=== PATIENT | male | born 1950 | race Caucasian/White ===

== ENCOUNTER → 2018-03-20 | Outpatient (CLI) | payer MEDICARE ==
[~2018-03-20] MED LIST: AMLO1CAP4 PO
== END | disposition home or self-care (01) ==
LOC: CFH 08:49
PROVIDERS: ATTEND Internal Medicine Cardiovascular Disease
DX: I10 Essential (primary) hypertension (principal); R00.2 Palpitations
CPT/HCPCS: 93306

== ENCOUNTER → 2018-07-04 | Outpatient (CLI) | payer MEDICARE ==
[~2018-07-04] MED LIST changes: +METO25TA35 PO; +MULT-717 PO; +TADA5TAB2 PO
[2018-07-04 10:29] LABS: ALANINE AMINOTRANSFERASE 28 U/L (12-78); ALBUMIN 3.9 g/dL (3.4-5.0); CALCIUM 8.6 mg/dL (8.5-10.1); CREATININE 1.08 mg/dL (0.7-1.3)
[2018-07-04 10:31] LABS: ALKALINE PHOSPHATASE 47 U/L (45-117); BILIRUBIN,TOTAL 0.7 mg/dL (0.2-1.0); TOTAL PROTEIN 7.3 g/dL (6.4-8.2)
[2018-07-04 10:42] LABS: CHLORIDE 108 mmol/L (98-107)
[2018-07-04 10:43] LABS: ANION GAP 9 mmol/L (5-15)
== END | disposition home or self-care (01) ==
LOC: STAR 09:04
PROVIDERS: ATTEND Surgery
DX: Z01.818 Encounter for other preprocedural examination (principal); K42.9 Umbilical hernia without obstruction or gangrene
CPT/HCPCS: 36415; 80053; 93005

== ENCOUNTER 2018-07-21 07:30 | Day surgery (SDC) | payer MEDICARE ==
[2018-07-04 10:13] VITALS: BP 146/85
[~2018-07-21] VITALS: Ht 188 cm; Wt 92.7 kg
[~2018-07-21 07:30] MED LIST changes: +BUPIVACAINE/PF 0.5% ONE; +EPINEPHRINE 1 MG/ML, 1ML ONE
[2018-07-21] MEDS ORDERED: LACTATED RINGERS 1,000 ML IV SCH (07:59)
[2018-07-21] MEDS ORDERED: ONDANSETRON ODT 8 MG PO ONE (08:00)
[2018-07-21] MEDS ORDERED: GABAPENTIN 300 MG CAPSULE PO ONE (08:00)
[2018-07-21] MEDS ORDERED: ACETAMINOPHEN 500 MG TABLET PO ONE (08:00)
[2018-07-21] MEDS ORDERED: FENTANYL PF 100 MCG/2ML ONE ×2 (09:05→10:30)
[2018-07-21] MEDS ORDERED: MIDAZOLAM 1 MG/ML, 2ML ONE (09:05)
[2018-07-21] MEDS ORDERED: CEFAZOLIN 1,000 MG ONE (09:06)
[2018-07-21] MEDS ORDERED: DEXAMETHASONE 4 MG/ML, 1ML ONE (09:06)
[2018-07-21] MEDS ORDERED: PROPOFOL 10 MG/ML, 20ML ONE (09:06)
[2018-07-21] MEDS ORDERED: EPINEPHRINE 1 MG/ML, 1ML ONE (09:15)
[2018-07-21] MEDS ORDERED: BUPIVACAINE/PF 0.5% ONE (09:15)
[2018-07-21] MEDS ORDERED: HYDROmorphone 1 MG/ML, 1ML IV PRN (10:00)
[2018-07-21] MEDS ORDERED: LABETALOL 5MG/ML, 20ML IV PRN (10:00)
[2018-07-21] MEDS ORDERED: PROMETHAZINE 25 MG SUPP PR PRN (10:00)
[2018-07-21] MEDS ORDERED: OXYcodone 5 MG/5 ML ORAL.SOL UDC PO PRN (10:00)
[2018-07-21] MEDS ORDERED: ONDANSETRON 2MG/ML, 2ML IV PRN (10:00)
[2018-07-21] MEDS ORDERED: MEPERIDINE/PF 25MG/0.5ML IVPush PRN (10:00)
[2018-07-21] MEDS ORDERED: ALBUTEROL/IPRATROPIUM 2.5MG/0.5MG, 3 ML NPPB PRN (10:00)
[2018-07-21] MEDS ORDERED: SCOPOLAMINE PATCH, 1.5MG PATCH.TD72 TD PRN (10:00)
[2018-07-21] MEDS ORDERED: FENTANYL PF 100 MCG/2ML IV PRN (10:00)
[2018-07-21] MEDS ORDERED: MIDAZOLAM 1 MG/ML, 2ML IV PRN (10:00)
[2018-07-21] MEDS ORDERED: OXYcodone 5 MG/5 ML ORAL.SOL UDC ONE (10:15)
[2018-07-21] MEDS ORDERED: KETOROLAC 30 MG/1 ML ONE (16:04)
== END 2018-07-21 12:15 | disposition home or self-care (01) ==
LOC: OUT 07:30
PROVIDERS: ATTEND Surgery
DX: K42.0 Umbilical hernia with obstruction, without gangrene (principal); I10 Essential (primary) hypertension; G47.33 Obstructive sleep apnea (adult) (pediatric); Z98.890 Other specified postprocedural states; Z87.891 Personal history of nicotine dependence; Z72.89 Other problems related to lifestyle
CPT/HCPCS: 49587; J0171; J0690; J1100; J1885; J2250; J2704; J3010; J3490; J7120; Q0162; C1781

== ENCOUNTER 2019-11-08 11:58 | Day surgery (SDC) | payer MEDICARE ==
[~2019-11-08] VITALS: Ht 188 cm; Wt 90.9 kg
[~2019-11-08 11:58] MED LIST changes: -BUPIVACAINE/PF 0.5% ONE; -EPINEPHRINE 1 MG/ML, 1ML ONE
[2019-11-08] MEDS ORDERED: LIDOCAINE 2%, 20ML ONE (12:47)
[2019-11-08] MEDS ORDERED: LIDOCAINE 2%, 20ML SQ PRN (13:30)
== END 2019-11-08 13:40 | disposition home or self-care (01) ==
LOC: CACL 11:58
PROVIDERS: ATTEND Internal Medicine Cardiovascular Disease
DX: R00.2 Palpitations (principal); I10 Essential (primary) hypertension; Z79.899 Other long term (current) drug therapy; Z90.49 Acquired absence of other specified parts of digestive tract; Z82.49 Family history of ischemic heart disease and other diseases of the circulatory system
CPT/HCPCS: 33285; C1764